=== PATIENT | female | born 1995 | race Two or more races ===

== ENCOUNTER 2023-07-16 11:51 | Outpatient (REF) | payer OTHER, SELFPAY ==
--- NOTE | ~2023-07-16 | US_ITS ---
EXAMINATION: US THYROID CLINICAL INFORMATION: Thyromegaly on exam. COMPARISON: None available. TECHNIQUE: Linear transducer nation-scale and color Doppler examination with attention to the region of the thyroid. FINDINGS: SIZE: Measurements of the thyroid lobes and nodules are given in sagittal, anteroposterior and transverse dimensions respectively. Right Thyroid Lobe: 4.05 x 1.34 x 1.30 cm, volume 3.70 mL. Parenchyma: The gland echotexture is homogeneous. Thyroid vascularity is normal. Left Thyroid Lobe: 5 x 1.3 x 1.3 cm, volume 4.4 mL. Parenchyma: The gland echotexture is homogeneous. Thyroid vascularity is normal. Isthmus: 0.27 cm in maximum AP dimension. No focal thyroid nodule is seen. NODES: No lymphadenopathy is seen in the tissue surrounding the thyroid gland. US/US thyroid IMPRESSION: No significant thyroid nodule. No FNA or follow up. ACR TI-RADS RECOMMENDATION REFERENCE: Ultrasound-guided fine-needle aspiration, followup ultrasound, no further follow up. * TR1 (0 point) and TR2 (2 points): No FNA or follow up. * TR3 (3 points): FNA if more than or equal to 2.5 cm in maximum dimension, followup ultrasound in 1, 3 and 5 years if 1.5 to 2.4 cm in maximum dimension. * TR4 (4-6 points): FNA if more than or equal to 1.5 cm in maximum dimension, followup ultrasound in 1, 2, 3 and 5 years if 1 to 1.4 cm in maximum dimension. * TR5 (more than or equal to 7 points): FNA if more than or equal to 1 cm in maximum dimension, followup ultrasound every year for 5 years if 0.5 to 0.9 cm in maximum dimension. * TR3, TR4 or TR5 nodules that are below the size threshold for followup receive no follow up.
== END 2023-07-16 11:52 | disposition home or self-care (01) ==
LOC: HO.UMASIMG 11:51
PROVIDERS: PCP Nurse Practitioner Women's Health; Visit Provider Nurse Practitioner Women's Health
DX: E04.9 Nontoxic goiter, unspecified (principal)
CPT/HCPCS: 76536

== ENCOUNTER 2024-11-01 06:36 | Outpatient (REF) | payer OTHER, SELFPAY | END 2024-11-01 06:37 | disposition home or self-care (01) | LOC: HO.UMASIMG 06:36 | PROVIDERS: Visit Provider Family Medicine | DX: Z13.89 Encounter for screening for other disorder (principal) ==

== ENCOUNTER 2024-11-08 06:39 | Outpatient (REF) | payer OTHER, SELFPAY ==
--- NOTE | ~2024-11-08 | US_ITS ---
EXAMINATION: US THYROID CLINICAL INFORMATION: Nontoxic thyroid goiter. COMPARISON: July 16, 2023. TECHNIQUE: Linear transducer grayscale and color Doppler examination with attention to the region of the thyroid. FINDINGS: SIZE: Measurements of the thyroid lobes and nodules are given in sagittal, anteroposterior and transverse dimensions respectively. Right Thyroid Lobe: 5.1 x 1.3 x 1.7 cm, volume 5.9 mL. Previous: 4.7 x 1.3 x 1.3, volume: 3.7 cc. Parenchyma: The gland echotexture is normal. Thyroid vascularity is normal. Left Thyroid Lobe: 5.1 x 1.1 x 1.4 cm, volume 4.1 mL. Previous: 5.0 x 1.3 x 1.3, volume: 4.4 cc. Parenchyma: The gland echotexture is normal. Thyroid vascularity is normal. Isthmus: 0.3 cm in maximum AP dimension. Previous: 0.27 cm. Estimated total number of nodules greater than or equal to 1 cm: 0. US/US thyroid IMPRESSION: ACR TI-RADS category: 0 ACR TI-RADS RECOMMENDATION REFERENCE: Ultrasound-guided fine-needle aspiration, followup ultrasound, no further follow up. * TR1 (0 point) and TR2 (2 points): No FNA or follow up. * TR3 (3 points): FNA if more than or equal to 2.5 cm in maximum dimension, followup ultrasound in 1, 3 and 5 years if 1.5 to 2.4 cm in maximum dimension. * TR4 (4-6 points): FNA if more than or equal to 1.5 cm in maximum dimension, followup ultrasound in 1, 2, 3 and 5 years if 1 to 1.4 cm in maximum dimension. * TR5 (more than or equal to 7 points): FNA if more than or equal to 1 cm in maximum dimension, followup ultrasound every year for 5 years if 0.5 to 0.9 cm in maximum dimension. * TR3, TR4 or TR5 nodules that are below the size threshold for followup receive no follow up. Electronically signed by: Deo Javier MD 11/08/2024 02:15 PM EDT
== END 2024-11-08 06:40 | disposition home or self-care (01) ==
LOC: HO.UMASIMG 06:39
PROVIDERS: Visit Provider Family Medicine
DX: L68.0 Hirsutism (principal); E04.9 Nontoxic goiter, unspecified
CPT/HCPCS: 76536

== ENCOUNTER → 2024-11-08 11:00 | Outpatient (BNV) | payer OTHER, SELFPAY | PROVIDERS: Visit Provider Radiology Diagnostic Radiology | DX: E04.9 Nontoxic goiter, unspecified (principal) | CPT/HCPCS: 76536 ==

== ENCOUNTER 2025-05-25 08:00 | Outpatient (REF) | payer OTHER, SELFPAY ==
--- NOTE | ~2025-05-25 | US_ITS ---
EXAMINATION: US PELVIS CLINICAL INFORMATION: Irregular menses. COMPARISON: None available. TECHNIQUE: Ultrasound of the pelvis is performed using both transabdominal and transvaginal transducers along with Doppler. Transvaginal imaging is performed due to inadequate visualization transabdominally. FINDINGS: Uterus: The uterus is anteversion flexion and measures 8 x 5 x 5 cm. Volume: 83 cc. The double wall endometrial thickness is 8 mm. The uterus is smooth in contour and has normal myometrial echogenicity. No gross soft tissue lesions in the myometrium. Adnexa: The ovaries are identified with flow on color Doppler interrogation.. There is a 1.9 cm anechoic structure in the left ovary. No free fluid in the cul-de-sac. No solid lesions. Right ovary measures 3 x 2 x 2 cm. Volume: 6 cc. Left ovary measures 4 x 2 x 2 cm. Volume: 8 cc. US/US pelvic and transvaginal IMPRESSION: No uterine fibroids. 1.9 cm dominant follicle, left ovary. No ovarian torsion. Endometrial stripe: 8 mm. Electronically signed by: Deo Javier MD 05/25/2025 11:32 AM EST
== END 2025-05-25 08:01 | disposition home or self-care (01) ==
LOC: HO.UMASIMG 08:00
PROVIDERS: Visit Provider Family Medicine
DX: N92.6 Irregular menstruation, unspecified (principal)
CPT/HCPCS: 76830; 76856

== ENCOUNTER → 2025-05-25 10:06 | Outpatient (BNV) | payer OTHER, SELFPAY | PROVIDERS: Visit Provider Radiology Diagnostic Radiology | DX: N92.6 Irregular menstruation, unspecified (principal) | CPT/HCPCS: 76830; 76856 ==